=== PATIENT | female | born 2005 | race African-American/Black ===

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

== ENCOUNTER 2024-06-26 23:13 | Emergency (ER) | payer OTHER ==
--- OUTSIDE RECORDS SUMMARY | 2024-06-26 23:33 | XMS REPORT | Continuity of Care Document ---
Author Name Unknown Address [address] [facility] [address] [facility] [address] [place] [address] [facility] Address [address] [place] [address] Care Team Providers Care Civil Estimator Name Role Phone Pcp, Patient Does Not Have A Primary Care Physic moe LEONEL MONTES Attending Clinician Unavailable LEONEL MONTES Attending Clinician Unavailable Leonel Person Attending Clinician [phone] BON DIAS Attending Clinician Unavailable BON DIAS Attending Clinician Unavailable Nino Marcano PA-C Attending Clinician [phone] NINO MARCANO Attending Clinician Unavailable NINO MARCANO Attending Clinician Unavailable ANTONETTE LEONARD Attending Clinician UnavailANTONETTE Stevenson Attending Clinician UnavailAntonette Stevenson MD Attending Clinician [phone] ROXY ARITA Attending Clinician UnavailROXY Elizabeth Attending Clinician Unavailpriyanka Weaver RN, Vero Bacon Attending Clinician Unavailab le Only, Adc Test Attending Clinician Unavailable Deejay Ortega MD Attending Clinician [phone] [facility] Doctor Unassigned, [place] Attending Clinician U navailable Payers Payer Name Policy Type Policy Number Effective Date Expirati on Date Source BENEDICT ALBERT [id number] 2022 00:00:00 CARISSA JORGE [id number] 2022 00:00:00 Problems Condition Name Condition Details Condition Category Status Onset Date Resolution Date Last Treatment Date Treating Clinician Comments Source Asthma, mild intermitte nt, uncomplica magen Asthma, mild intermitte nt, uncomplica magen Disease Active 2014-02 00:00: 00 [facility] Allergic rhinitis, unspecifie d allergic rhinitis type Allergic rhinitis, unspecifie d allergic rhinitis type Disease Active 2014-02 00:00: 00 [facility] Asthma Asthma Disease Resolve d 2015-10-20 00:00:00 2015-10-20 04:21:10 [facility] Allergies, Adverse Reactions, Alerts Allergy Name Allergy Type Status Severity Reaction(s) Onset Date Inactive Date Treating Clinician Comments Source Tree Nuts Propensi ty to adverse reaction s Active Hives 11-12 00:00: 00 macadamia [facility] TREE NUTS Food Active Hives 11-12 00:00: 00 [facility] Social History Social Habit Start Date Stop Date Quantity Comments Source Exposure to SARS-CoV-2 (event) Not sure [facility] acute hospital History of tobacco use Passive smoker [facility] Sexual orientation U [facility] ASSERTION Not [facility] History of Social function 2023-09-10 00:00:00 2023-09-10 00:00:00 [facility] Sex assigned at 2005 00:00:00 2005 00:00:00 [facility] Smoking Status Start Date Stop Date Source Never smoked tobacco [facility] Medications Ordered Medication Name Filled Medication Name Start Date Stop Date Current Medication? Ordering Clinician Indication Dosage Frequency Signature (SIG) Comments Components Source No known medications No Un rubio [facility] No known medications No Un rubio [facility] Immunizations Ordered Immunization Name Filled Immunization Name Date Status Comments Source Meningococcal Polysaccharide (groups A, C, Y and W-135) conjugate vaccine (MCV4P) 2015-10-19 00:00:00 Completed [facility] TDAP 2015-10-19 00:00:00 Completed [facility] HPV 2015-10-19 00:00:00 Completed [facility] Meningococcal Polysaccharide (groups A, C, Y and W-135) conjugate vaccine (MCV4P) 2015-10-19 00:00:00 Completed [facility] HPV 2015-10-19 00:00:00 Completed [facility] Meningococcal Polysaccharide (groups A, C, Y and W-135) conjugate vaccine (MCV4P) 2015-10-19 00:00:00 Completed TDAP 2015-10-19 00:00:00 Completed [facility] TDAP 2015-10-19 00:00:00 Completed HPV 2015-10-19 00:00:00 Completed [facility] Meningococcal Polysaccharide (groups A, C, Y and W-135) conjugate vaccine (MCV4P) 2015-10-19 00:00:00 Completed [facility] TDAP 2015-10-19 00:00:00 Completed [facility] HPV 2015-10-19 00:00:00 Completed [facility] HPV Unknown Completed [facility] Meningococcal Polysaccharide (groups A, C, Y and W-135) conjugate vaccine (MCV4P) Unknown Completed [facility] TDAP Unknown Completed [facility] HPV Unknown Completed [facility] Meningococcal Polysaccharide (groups A, C, Y and W-135) conjugate vaccine (MCV4P) Unknown Completed [facility] TDAP Unknown Completed [facility] HPV Unknown Completed [facility] Meningococcal Polysaccharide (groups A, C, Y and W-135) conjugate vaccine (MCV4P) Unknown Completed [facility] TDAP Unknown Completed [facility] Vital Signs Vital Name Observation Time Observation Value Comments S ource Systolic blood pressure 2024-06-16 16:48:00 117 mm[Hg] [facility] Diastolic blood pressure 2024-06-16 16:48:00 74 mm[Hg] [facility] Heart rate 2024-06-16 16:48:00 62 /min [facility] Body temperature 2024-06-16 16:48:00 36.72 Octavia [facility] Respiratory rate 2024-06-16 16:48:00 12 /min [facility] Oxygen saturation in Arterial blood by Pulse oximetry 2024-06-16 16:48:00 100 /min [facility] Body height 2024-06-16 14:12:00 165.1 cm [facility] Body weight 2024-06-16 14:12:00 52.164 kg [facility] BMI 2024-06-16 14:12:00 19.14 kg/m2 [facility] Body height 2023-09-10 18:39:00 165.1 cm [facility] Body weight 2023-09-10 18:39:00 51.71 kg [facility] BMI 2023-09-10 18:39:00 18.97 kg/m2 [facility] Procedures Procedure Date / Time Performed Performing Clinicia n Source POCT TEST 2024-06-16 16:41:00 Leonel Montes [facility] ADC CLC OR LCC ONLY - WET PREP 2024-06-16 15:35:00 Leonel Montes [facility] CONSENT/REFUSAL FOR DIAGNOSIS AND TREATMENT 2019-09-30 19:51:33 Doctor Unassigned, [place] [facility] ASSIGNMENT OF BENEFITS 2019-09-30 19:51:25 Docto r Unassigned, [place] [facility] Encounters Start Date/Time End Date/Time Encounter Type Admission Type Attending Clinicians Care Facility Care Department Encounter ID Source 2024-06-16 09:13:00 2024-06-16 12:13:00 Emergency X LEONEL MONTES [facility] E[facility] [id number] [facility] 2024-06-16 09:13:00 2024-06-16 12:13:00 Emergency Leonel Montes AT [facility] [id number] [id number] [id number] [facility] 2024-06-16 09:00:00 2024-06-16 09:00:00 Outpatient R BON DIAS VIEN [facility] [id number] [facility] 2023-09-23 00:00:00 2023-09-23 10:36:53 Telephone Jeet Nino [facility] MOLINA?[facility] [id number] [id number] [id number] [id number] [facility] 2023-09-22 00:00:00 2023-09-22 15:15:24 Telephone Jeet formerly [facility] [id number] [id number] [id number] [id number] [facility] 2023-09-10 14:45:00 2023-09-10 14:45:00 Office Visit Nino Marcano Craig L [facility] [id number] 350.1.13.10 4.2.7.2.686 [id number] [facility] 2023-09-10 14:45:00 2023-09-10 14:08:29 Outpatient ANTONETTE ANAYA CRAIG [facility] [id number] [facility] 2022-05-10 15:30:00 2022-05-10 15:30:00 Outpatient R ROXY ARITA CHERYAL [facility] [id number] [facility] 2019-10-04 00:00:00 2019-10-04 00:00:00 Letter (Out) [facility] [id number] [id number] [id number] [id number] 2019-10-04 00:00:00 2019-10-04 00:00:00 Letter (Out) [facility] [id number] 350.1.13.10 [id number] [id number] [facility] 2019-09-30 14:54:22 2019-09-30 15:09:22 Laboratory Only Only, Adc Test [facility] [id number] 350.1.13.10 4.2.7.2.686 [id number] 2019-09-30 14:54:22 2019-09-30 15:09:22 Laboratory Only Only, Adc Test Deejay Ortega [facility] [id number] 350.1.13.10 4.2.7.2.686 [id number] [facility] 2019-09-30 15:00:00 2019-09-30 15:00:00 Outpatient R [facility] [id number] [facility] 2019-09-30 00:00:00 2019-09-30 00:00:00 Orders Only Doctor Unassigned, [place] [facility] [id number] [id number] [id number] [id number] 2019-09-30 00:00:00 2019-09-30 00:00:00 Orders Only Doctor Unassigned, [place] [facility] [id number] [id number] [id number] [facility] Results Test Description Test Time Test Comments Results Result Co mments Source [facility] Notes Date/Time Note Provider Source 2024-06-16 11:48:00 Pt discharged with diagnosis of vaginal leukorrhea, acute vaginitis. Printed and verbal instructions reviewed with and given to pt. Prescriptions given x 0. pt verbalized understanding of teaching and recommended follow-up. Denies questions or concerns at this time. Pt ambulatory at discharge. Appears in no apparent distress. No ataxia noted. Chandni Glass RN [facility] 2024-06-16 09:11:04 Patient states: "I think I have a yeast infection. I don't know if its me being allergic to the detergent or my boyfriend" Reports 2 days burning with urination. Reports clumpy discharge. Nasrin Hill RN [facility] 2023-09-23 10:33:59 Work release form dropped off was given to PR for providers signature. Provider signed, form uploaded to pts chart and called pt to potato picker. Cristy Babcock [facility] 2023-09-22 15:08:51 Pt came by dropped off LDAR by alena ly forms to be filled out for back to work release. Provider signed, attempted to contact pt to potato picker forms, uploaded to chart and put in black box on counter for pt to potato picker. Cristy Babcock [facility]
[2024-06-27] MEDS ORDERED: LIDOCAINE 2% W/EPI 1:200,000 MPF 20 ML VIAL IM ONE (00:12)
--- NOTE | 2024-06-27 01:02 | EDPHYS ---
Physician Documentation [facility] Name: Charlene Mccullough Age: 19 yrs Sex: Female : 2005 Arrival Date: 06/26/2024 Time: 23:13 Bed 11 Private MD: LORI Physician Frederick Severino HPI: 06/26 23:40 This 19 yrs old Black Female presents to ER via Ambulatory with complaints of cp Laceration To Leg. 23:40 The patient has a laceration injury occurred after sitting of large piece of glass. cp 23:40 The laceration(s) is(are) located on the posterior aspect of right upper leg. Onset: cp The symptoms/episode began/occurred yesterday. Associated signs and symptoms: The patient has no apparent associated signs or symptoms. 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 - Infectious Disease History:: Denies. - Social history:: Smoking status: Reported history of juuling and/or vaping. Patient uses alcohol, only on a social basis. Patient/guardian denies using street drugs. ROS: 23:45 MS/extremity: Positive for laceration, of the posterior aspect right upper leg, cp 23:45 Constitutional: Negative for fever, cp 23:45 All other systems are negative, Exam: 23:50 Constitutional: The patient appears in no acute distress, alert, awake, comfortable, cp non-toxic, well developed, well nourished, 23:50 Head/Face: Normocephalic, atraumatic. cp 23:50 Chest/axilla: Inspection: normal, 23:50 Cardiovascular: Rate: normal, 23:50 Respiratory: the patient does not display signs of respiratory distress, Respirations: normal, no use of accessory muscles, no retractions, 23:50 Abdomen/GI: Exam negative for discomfort, distension, guarding, 23:50 Skin: injury, laceration(s), the wound is approximately 3 cm(s), of the posterior aspect right upper leg, that can be described as clean, no foreign body, linear, minimal active bleeding, Vital Signs: 23:30 BP 112 / 87; Pulse 83; Resp 16 S; Temp 97.8(O); Pulse Ox 100% on R/A; Weight 50.8 kg lg3 (R); Height 5 ft. 5 in. (R); Pain 06/26; 06/27 00:46 BP 117 / 81; Pulse 81; Resp 17 S; Pulse Ox 100% on R/A; lg3 06/26 23:30 Body Mass Index 18.64 (50.80 kg, 165.1 cm) lg3 06/26 23:30 Pain Scale: Adult lg3 Laceration: 00:56 Wound Repair of 3.5cm ( 1.4in ) subcutaneous laceration to back of right upper leg. cp Linear shaped.. Distal neuro/vascular/tendon intact. Anesthesia: Wound infiltrated with 5 mls of 2% lidocaine. Wound prep: Simple cleansing by me. Skin closed with 3 4-0 Prolene using interrupted sutures and sterile technique. Dressed with Bacitracin, 4x4's. Patient tolerated well. MDM: 06/26 23:36 Medical Screening Exam initiated cp 06/27 00:15 Differential diagnosis: superficial laceration, tendon injury, vascular injury, foreign cp body. 01:00 Data reviewed: vital signs, nurses notes, and as a result, I will discharge patient. cp 01:00 Counseling: I had a detailed discussion with the patient and/or guardian regarding the cp historical points, exam findings, and any diagnostic results supporting the discharge/admit diagnosis, to return to the emergency department if symptoms worsen or persist or if there are any questions or concerns that arise at home. Response to treatment: the patient's symptoms have markedly improved after treatment, and as a result, I will discharge patient. Special discussion: I discussed in detail with the patient the higher chance of wound infection based on his presenting history. 06/27 00:08 Order name: Dressing - Wound; Complete Time: 00:13 cp 06/27 00:08 Order name: Gloves, Sterile; Complete Time: 00:13 cp 06/27 00:08 Order name: Setup Suture Tray; Complete Time: 00: cp 06/27 00:56 Order name: Wound dressing; Complete Time: 01:27 cp Administered Medications: : Drug: Lidocaine Infiltration (2 %) 5 ml 5 ml Infiltration once; with epinephrine lg3 Volume: 5 ml; Route: Infiltration; 01:28 Follow up: Response: No adverse reaction lg3 Disposition: 06/28 01:11 Chart complete. cp Disposition Summary: 06/27/24 01:01 Discharge Ordered Notes: Location: Home cp Problem: new cp Symptoms: have improved cp Condition: Stable cp Diagnosis - Laceration without foreign body, right thigh, initial encounter cp Followup: cp - With: Private Physician - When: 10 - 14 days - Reason: Staple/Suture removal Discharge Instructions: - Discharge Summary Sheet cp - Laceration Care, Adult cp Forms: - Medication Reconciliation Form cp - Antibiotic Education cp - Prescription Opioid Use cp - Patient Portal Instructions cp - Leadership Thank You Letter cp Prescriptions: - Cephalexin 500 mg Oral Capsule - take 1 capsule ORAL route every 8 hours for 10 days; 30 capsule; Refills: 0, cp Product Selection Permitted Signatures: Frederick Lopez PA PA cp Able, Lacie RN RN lg3
--- NOTE | 2024-06-27 01:02 | ER ---
Nurse's Notes [facility] Name: Charlene Mccullough Age: 19 yrs Sex: Female : 2005 Arrival Date: 06/26/2024 Time: 23:13 Bed 11 Private MD: Diagnosis: Laceration without foreign body, right thigh, initial encounter Presentation: 06/26 23:30 Chief complaint: Patient states: sat on a broken glass bottle yesterday. sustained lg3 laceration to back of right thigh. request urine drug screen. Coronavirus screen: Client denies travel out of the [place] in the last 14 days. At this time, the client does not indicate any symptoms associated with coronavirus-19. Ebola Screen: No symptoms or risks identified at this time. Complicating Factors: There are no complicating factors for this patient. Initial Sepsis Screen: Does the patient meet any 2 criteria? No. Patient's initial sepsis screen is negative. Does the patient have a suspected source of infection? No. Patient's initial sepsis screen is negative. Risk Assessment: Do you want to hurt yourself or someone else? Patient reports no desire to harm self or others. Onset of symptoms was June 25, 2024. 23:30 Method Of Arrival: Ambulatory lg3 23:30 Acuity: JESUS 4 lg3 Triage Assessment: 23:32 General: Appears in no apparent distress. comfortable, Behavior is calm, cooperative. lg3 Pain: Complains of pain in right hamstring. EENT: No deficits noted. No signs and/or symptoms were reported regarding the EENT system. Neuro: No deficits noted. Dickinson Agitation-Sedation Scale (RASS): 0 - Alert and Calm Level of Consciousness is awake, alert, obeys commands, Oriented to person, place, time, situation. Cardiovascular: No deficits noted. Denies chest pain, shortness of breath, Capillary refill < 3 seconds Clubbing of nail beds is absent JVD is absent Patient's skin is warm and dry. Respiratory: No deficits noted. Airway is patent Respiratory effort is even, unlabored, Respiratory pattern is regular, symmetrical. GI: No deficits noted. No signs and/or symptoms were reported involving the gastrointestinal system. : No signs and/or symptoms were reported regarding the genitourinary system. Derm: Skin is intact, is healthy with good turgor, Skin is dry, Skin is normal, Skin temperature is warm Wound noted right hamstring. Musculoskeletal: No deficits noted. No signs and/or symptoms reported regarding the musculoskeletal system. Circulation, motion, and sensation intact. Range of motion: intact in all extremities. Injury Description: Laceration sustained to right hamstring. 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 - Infectious Disease History:: Denies. - Social history:: Smoking status: Reported history of juuling and/or vaping. Patient uses alcohol, only on a social basis. Patient/guardian denies using street drugs. Screenin:30 [facility] ED Fall Risk Assessment (Adult) History of falling in the last 3 months, lg3 including since admission No falls in past 3 months (0 pts) Confusion or Disorientation No (0 pts) Intoxicated or Sedated No (0 pts) Impaired Gait No (0 pts) Mobility Assist Device Used No (0 pt) Altered Elimination No (0 pt) Score/Fall Risk Level 0 - 2 = Low Risk Oriented to surroundings, Maintained a safe environment, Educated pt \T\ family on fall prevention, incl call for assistance when getting out of bed, Assessed \T\ reinforced patient's understanding of fall precautions. Abuse screen: Denies threats or abuse. Denies injuries from another. Nutritional screening: No deficits noted. Tuberculosis screening: No symptoms or risk factors identified. Assessment: 23:30 General: see triage assessment. lg3 06/27 00:46 Reassessment: Patient appears in no apparent distress at this time. No changes from lg3 previously documented assessment. Patient and/or family updated on plan of care and expected duration. Pain level reassessed. Patient is alert, oriented x 3, equal unlabored respirations, skin warm/dry/pink. Vital Signs: 06/26 23:30 BP 112 / 87; Pulse 83; Resp 16 S; Temp 97.8(O); Pulse Ox 100% on R/A; Weight 50.8 kg lg3 (R); Height 5 ft. 5 in. (R); Pain 06/26; 06/27 00:46 BP 117 / 81; Pulse 81; Resp 17 S; Pulse Ox 100% on R/A; lg3 06/26 23:30 Body Mass Index 18.64 (50.80 kg, 165.1 cm) lg3 06/26 23:30 Pain Scale: Adult lg3 ED Course: 06/26 23:15 Patient arrived in ED. mr 23:23 Frederick Lopez PA is PHCP. rosana 23:23 Frederick Severino MD is Attending Physician. cp 23:30 Patient has correct armband on for positive identification. Placed in gown. Bed in low lg3 position. Call light in reach. Side rails up X 1. Door closed. Noise minimized. Warm blanket given. Pillow given. Family accompanied patient. 23:32 Triage completed. lg3 23:32 Arm band placed on right wrist. lg3 06/27 00:13 Eileen Kaba, RN is Primary Nurse. lg3 01:11 Assist provider with laceration repair on right hamstring that was 2.5 cm. or less lg3 using sutures. Set up tray. Performed by Frederick KING Patient tolerated well. :28 Provided Education on: wound care. lg3 01:28 Patient did not have IV access during this emergency room visit. lg3 Administered Medications: 01:27 Drug: Lidocaine Infiltration (2 %) 5 ml 5 ml Infiltration once; with epinephrine lg3 Volume: 5 ml; Route: Infiltration; :28 Follow up: Response: No adverse reaction lg3 Medication: :28 VIS not applicable for this client. lg3 Outcome: 01:01 Discharge ordered by . cp 01:27 Discharged to home ambulatory, with friend, lg3 01:27 Condition: stable 01:27 Discharge instructions given to patient, Instructed on discharge instructions, follow up and referral plans. medication usage, wound care, Demonstrated understanding of instructions, follow-up care, medications, wound care, Prescriptions given X 1, 01:28 Patient left the ED. lg3 Signatures: Elvira North, Reg Reg Frederick Lopez PA PA cp Able, Lacie, RN RN lg3
[2024-06-27 02:17] VITALS: TEMP 97.8; O2SAT 100
[2024-06-27 02:18] VITALS: BP 117/81
== END 2024-06-27 01:28 | disposition home or self-care (01) ==
LOC: ER 23:13
DX: S71.111A Laceration without foreign body, right thigh, initial encounter (principal); W25.XXXA Contact with sharp glass, initial encounter
CPT/HCPCS: 99283